=== PATIENT | male | born 1980 | race Caucasian/White ===

== ENCOUNTER 2018-01-12 03:13 | Emergency (ER) | payer OTHER ==
[~2018-01-12] VITALS: Ht 177.8 cm; Wt 86.2 kg
--- NOTE | 2018-01-12 03:34 | NUR ---
Dr. Jimenez at bedside for MSE.
[2018-01-12] MEDS ORDERED: CLINDAMYCIN HCL 300 MG CAPSULE (03:35)
[2018-01-12] MEDS ORDERED: SULFAMETH/TRIMETH 800/160 MG TABLET ONE (03:44)
[2018-01-12] MEDS ORDERED: SULFAMETH/TRIMETH 800/160 MG TABLET PO ONE (03:45)
--- NOTE | 2018-01-12 03:45 | NUR ---
Patient discharged to home in stable conditon. Written and verbal after care instructions given. Patient verbalizes understanding of instructions. Pt ambulated out of ER with steady gait, no acute signs of distress, VSS, all belongings taken.
[2018-01-12 03:46] VITALS: BP 114/73
== END 2018-01-12 03:46 | disposition home or self-care (01) ==
LOC: ER 03:15
DX: L02.416 Cutaneous abscess of left lower limb (principal); F17.200 Nicotine dependence, unspecified, uncomplicated; Z79.2 Long term (current) use of antibiotics
CPT/HCPCS: 99283; A4663

== ENCOUNTER 2018-01-15 13:34 | Emergency (ER) | payer OTHER ==
[~2018-01-15] VITALS: Ht 175.3 cm; Wt 86.2 kg
[~2018-01-15 13:34] MED LIST: CLINDAMYCIN HCL 300 MG CAPSULE
[2018-01-15] MEDS ORDERED: LIDOCAINE HCL 1% 20 ML VIAL TP ONE (14:00)
--- NOTE | 2018-01-15 14:14 | NUR ---
Patient discharged to home in stable conditon. Written and verbal after care instructions given to patient. Emphasis was gven on wound care & how to dress the wound. Patient verbalizes understanding of instructions.
== END 2018-01-15 14:14 | disposition home or self-care (01) ==
LOC: ER 13:34
DX: L02.416 Cutaneous abscess of left lower limb (principal); Z79.2 Long term (current) use of antibiotics
CPT/HCPCS: A4663

== ENCOUNTER 2018-09-13 23:11 | Emergency (ER) | payer OTHER ==
[~2018-09-13] VITALS: Ht 177.8 cm; Wt 81.6 kg
--- NOTE | 2018-09-13 23:15 | NUR ---
Pt. ambulated into ED w/ c/o abscess on LLE - posterior upper thigh, 3 cm red circular abscess noted w/ 9 cm circular celulitis surrounding it,
--- NOTE | 2018-09-13 23:53 | NUR ---
Patient discharged to home in stable conditon. Written and verbal after care instructions given. Patient verbalizes understanding of instructions. Pt. d/c w/ prescription per MD order, d/c papers signed, all belongings w/ pt., ID band removed, ambulated off unit w/ steady gait, left in private vehicle, NAD
== END 2018-09-13 23:55 | disposition home or self-care (01) ==
LOC: ER 23:21
DX: L02.416 Cutaneous abscess of left lower limb (principal); F17.290 Nicotine dependence, other tobacco product, uncomplicated; F11.10 Opioid abuse, uncomplicated; Z79.2 Long term (current) use of antibiotics
CPT/HCPCS: A4663

== ENCOUNTER 2018-09-16 06:21 | Emergency (ER) | payer OTHER ==
[~2018-09-16] VITALS: Ht 177.8 cm; Wt 81.6 kg
--- NOTE | 2018-09-16 06:40 | NUR ---
Dr. Neves at bedside for MSE.
[2018-09-16 06:46] VITALS: BP 137/77
== END 2018-09-16 06:47 | disposition home or self-care (01) ==
LOC: ER 06:23
DX: L02.31 Cutaneous abscess of buttock (principal); F17.200 Nicotine dependence, unspecified, uncomplicated; F11.10 Opioid abuse, uncomplicated; Z79.2 Long term (current) use of antibiotics
CPT/HCPCS: A4663

== ENCOUNTER 2021-04-25 00:08 | Emergency (ER) | payer OTHER ==
[~2021-04-25] VITALS: Ht 180.3 cm; Wt 86.2 kg
--- NOTE | 2021-04-25 00:15 | NUR ---
Pt brought back to room ED1B by evs attendant Micah for cough and head cold xfew days, denies any FV or chills or body aches. Pt is worried it might be covid 19, so he is here for a covid test. Pt otherwise healthy individual with no health issues. Pt is unvaccinated, but does not have any other symptoms of covid. Pt placed on gurney in position of comfort. VSS, PE WNL beside some slight experatory wheezing. Pt is an recreational smoker.
--- NOTE | 2021-04-25 00:18 | NUR ---
LANCE Vance at pt bedside for eval and PE. LANCE advised pt to get the covid vaccin and to stop smoking.
--- NOTE | 2021-04-25 00:20 | NUR ---
Pt swabbed for Covid 19 using aseptic tech. Specimen sent up to lab.
--- NOTE | 2021-04-25 00:25 | NUR ---
XR tech at pt bedside for PCXR.
[2021-04-25] MEDS ORDERED: PRED20TA PO (01:38)
[2021-04-25] MEDS ORDERED: predniSONE 50 MG TABLET PO ONE (01:45)
--- NOTE | 2021-04-25 01:45 | NUR ---
Pt given discharge instructions and info about prescribtions. Pt confirmed understanding of aftercare instruction. Was advised a second time to go get the covid vaccine and to consider quiting smoking. Pt's VSS, PE WNL, slight wheezing in the lung bases, but otherwise clear; oxygenating and perfusing well. 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 Strong and reg pulses x4 ext. Denies any pain or nausea. No s/sx of distress present.
[2021-04-25] MEDS ORDERED: predniSONE 50 MG TABLET ONE (01:51)
[2021-04-25 03:31] VITALS: BP 139/90
== END 2021-04-25 01:45 | disposition home or self-care (01) ==
LOC: ER 00:11
DX: J20.9 Acute bronchitis, unspecified (principal); Z20.822 Contact with and (suspected) exposure to COVID-19; F17.210 Nicotine dependence, cigarettes, uncomplicated; R03.0 Elevated blood-pressure reading, without diagnosis of hypertension
CPT/HCPCS: 71045; 87426; 99284; 99406; J7512; A4663